=== PATIENT | male | born 1930 | race Caucasian/White ===

== ENCOUNTER → 2016-05-10 | Outpatient (CLI) | payer OTHER ==
[2016-05-10 09:07] LABS: HEMOGLOBIN A1C 6.63 % (4.2-6.0); MEAN BLOOD GLUCOSE (CALC) 134.779 mg/dL
== END ==
LOC: LAB 08:35
PROVIDERS: ATTEND Internal Medicine
DX: E11.9 Type 2 diabetes mellitus without complications (principal)
CPT/HCPCS: 36415; 82043; 83036

== ENCOUNTER → 2016-05-14 | Outpatient (CLI) | payer OTHER | LOC: MMPC 11:11 | PROVIDERS: ATTEND Internal Medicine | DX: E11.9 Type 2 diabetes mellitus without complications (principal); I10 Essential (primary) hypertension; E78.5 Hyperlipidemia, unspecified | CPT/HCPCS: 99214; G0463 ==

== ENCOUNTER → 2016-10-15 | Outpatient (CLI) | payer OTHER | LOC: MMPC 11:11 | PROVIDERS: ATTEND Physician Assistant | DX: S91.202A Unspecified open wound of left great toe with damage to nail, initial encounter (principal) | CPT/HCPCS: 64455; G0463 ==

== ENCOUNTER → 2016-11-09 | Outpatient (CLI) | payer OTHER ==
[2016-11-09 08:42] LABS: BASOPHILS # (AUTO) 0.03 10*3/UL; BASOPHILS % (AUTO) 0.5 % (0-1); EOSINOPHILS % (AUTO) 3.2 % (0-8); HEMATOCRIT 46.7 % (42.0-52.0); HEMOGLOBIN 16.2 g/dL (14.0-18.0); LYMPHOCYTES # (AUTO) 1.21 10*3/uL; MEAN CORPUSCULAR HEMOGLOBIN 32.9 PG (27-31); MEAN CORPUSCULAR HGB CONC 34.7 g/dL (33-37); MEAN CORPUSCULAR VOLUME 94.7 FL (80-90); MEAN PLATELET VOLUME 8.7 FL (7.4-12.2); MONOCYTES # (AUTO) 0.85 10*3/UL (0.3-0.8); MONOCYTES % (AUTO) 13.7 % (5-15); NEUTROPHILS % (AUTO) 62.6 % (50-80); RED BLOOD COUNT 4.93 10^6/uL (4.70-6.10)
[2016-11-09 09:05] LABS: PLATELET MORPHOLOGY COMMENT NORMAL MORPHOLOGY (NORM); RBC MORPHOLOGY COMMENT NORMAL MORPHOLOGY (NORM); WBC MORPHOLOGY COMMENT NORMAL MORPHOLOGY (NORM)
[2016-11-09 09:12] LABS: CHOL/HDL RATIO 2.5 RATIO (0-4.0); LDL CHOLESTEROL,CALCULATED 51.4 mg/dL
[2016-11-09 09:16] LABS: HEMOGLOBIN A1C 6.85 % (4.2-6.0)
[2016-11-09 09:51] LABS: BUN/CREATININE RATIO 17.85 (6-20); CALCIUM 9.5 mg/dL (8.7-10.7); SERUM ALBUMIN 4.1 g/dL (3.5-4.8)
[2016-11-09 10:53] LABS: CREATININE, URINE 61.5 MG/DL (15-500)
== END ==
LOC: LAB 08:23
PROVIDERS: ATTEND Internal Medicine
DX: E11.9 Type 2 diabetes mellitus without complications (principal); E78.5 Hyperlipidemia, unspecified; I10 Essential (primary) hypertension; Z12.5 Encounter for screening for malignant neoplasm of prostate
CPT/HCPCS: 36415; 80053; 80061; 82043; 82550; 83036; 84443; 85025; G0103